=== PATIENT | male | born 1970 | race Native Hawaiian/Other Pacific Islander ===

== ENCOUNTER 2018-08-25 16:14 | Outpatient (CLI) | payer OTHER | END 2018-08-25 16:30 | disposition short-term general hospital (02) | LOC: AMB 16:14 | DX: S01.01XA Laceration without foreign body of scalp, initial encounter (principal); R07.89 Other chest pain; R04.0 Epistaxis; W25.XXXA Contact with sharp glass, initial encounter; S61.412A Laceration without foreign body of left hand, initial encounter; S61.411A Laceration without foreign body of right hand, initial encounter; S41.112A Laceration without foreign body of left upper arm, initial encounter; S41.111A Laceration without foreign body of right upper arm, initial encounter; V59.59XA Passenger in pick-up truck or van injured in collision with other motor vehicles in traffic accident, initial encounter; Y92.413 State road as the place of occurrence of the external cause | CPT/HCPCS: A0425; A0427 ==

== ENCOUNTER 2018-08-25 16:39 | Emergency (ER) | payer OTHER ==
[~2018-08-25] VITALS: Ht 180.3 cm; Wt 104.3 kg
[2018-08-25 16:45] VITALS: BP 152/92; TEMP 97.3
[2018-08-25 16:58] LABS: PLATELET COUNT 273 K/uL (142-355)
[2018-08-25 17:11] LABS: POTASSIUM 3.5 mmol/L (3.6-5.2)
[2018-08-25 17:16] LABS: PARTIAL THROMBOPLASTIN TIME 21.9 SECONDS (24.5-33.6)
== END 2018-08-25 19:10 | disposition short-term general hospital (02) ==
LOC: ED 16:39
PROVIDERS: Family Medicine
DX: S36.898A Other injury of other intra-abdominal organs, initial encounter (principal); S09.8XXA Other specified injuries of head, initial encounter; S29.8XXA Other specified injuries of thorax, initial encounter; S20.212A Contusion of left front wall of thorax, initial encounter; S20.211A Contusion of right front wall of thorax, initial encounter; S01.01XA Laceration without foreign body of scalp, initial encounter; M54.2 Cervicalgia; V59.50XA Passenger in pick-up truck or van injured in collision with unspecified motor vehicles in traffic accident, initial encounter; Y92.89 Other specified places as the place of occurrence of the external cause
CPT/HCPCS: 36415; 80053; 85027; 85610; 85730; 90471; 90715; 96365; 96372; 96375; 96376; 99285; J1815; J2270; J2405; J2543